=== PATIENT | female | born 1965 | race Caucasian/White ===

== ENCOUNTER 2016-06-23 14:00 | Outpatient (RCR) | payer OTHER ==
[~2016-06-23 14:00] MED LIST: ALEVE 220MG220 MG PO; ASPIR-LOW81 MG PO; ASTELIN NASAL S34 ML NAS; ATARAX50 MG PO; B-121000 MCG PO; BENICAR 20MG TA20 MG PO; BEPREVE; CLARITIN 1010 MG/TAB PO; COENZYME Q-1010 MG PO; DITROPAN XL10 MG PO; GLUCOSAMINE PO; GLUCOSAMINE/CHONDROI PO; IMITREX100 MG PO; LIDOCAINE HCL100 M1 MM; LISINOPRIL10 MG PO; MACRODANTIN100; MAGNESIUM500 MG PO; MASON NATURAL1200 MG PO; MUCINEX 60600 MG/TAB PO; MURO N OP; MURO-128 5% OP3.5 GM OU; MYRBETR50MG PO; NEXIUM PO; NOLVADEX20 MG PO; PREMARIN VAG42.5 GM VG; PROBIOTICA100 MILLIO PO; PULMICORT0.5 MG/21 IH; PYRIDIUM 100MG100 MG PO; SINGULAIR10 MG PO; TEMOVATE0.05% TP; ULTRAM 50MG TAB50 MG PO; VITAMIND3 5000 PO; ZYRTEC 10MG PO
== END 2016-06-30 | disposition still patient (30) ==
LOC: WSPT
DX: I89.0 Lymphedema, not elsewhere classified (principal); C50.911 Malignant neoplasm of unspecified site of right female breast

== ENCOUNTER 2016-08-03 09:08 | Day surgery (SDC) | payer OTHER ==
[~2016-08-03] VITALS: Ht 172.8 cm; Wt 125.0 kg
[2016-08-03] VITALS (8 sets, daily range): BP systolic 104–141; BP diastolic 67–90; PULSE 16–78; TEMP 77–98.1
[2016-08-03 10:04] LABS: HEMATOCRIT 40.1 % (37.0-47.0); HEMOGLOBIN 13.2 g/dl (12.5-16.0); MEAN CELL VOLUME 86 fl (80.0-100.0); MEAN CORPUSCULAR HEMOGLOBIN 28 pg (27.0-31.0); MEAN CORPUSCULAR HGB CONC 33 g/dl (33.0-37.0); PLATELET COUNT 273 K/mm3 (130-400); RED BLOOD COUNT 4.65 M/mm3 (4.10-5.30); REDCELL DISTRIBUTION WIDTH-CV 12.7 % (11.5-14.5); WHITE BLOOD COUNT 6.6 K/mm3 (4.8-10.8)
[2016-08-03 10:11] LABS: INR 1.1 (0.8-3.0); PROTHROMBIN TIME 11.7 SECONDS (9.7-12.8)
[2016-08-03 10:15] LABS: CALCIUM 9.7 mg/dL (8.4-10.2); CREATININE, serum 0.83 mg/dL (0.52-1.25)
[2016-08-03] MEDS ORDERED: TOPROL XL 25MG25 MG PO (10:15)
[2016-08-03] MEDS ORDERED: NOLVADEX 1010 MG/TAB PO (10:17)
[2016-08-03] MEDS ORDERED: NEXIUM 40MG40 MG PO (10:17)
[2016-08-03] MEDS ORDERED: MURO 128 5% OPH15 ML OU (10:22)
[2016-08-03] MEDS ORDERED: SINGULAIR 110 MG/TAB PO (10:23)
[2016-08-03] MEDS ORDERED: NITROSTAT0.4 MG/TAB SL (10:25)
[2016-08-03] MEDS ORDERED: VOLTAREN GEL 1%1 TU TP (10:27)
[2016-08-03] MEDS ORDERED: ZOFRAN8 MG PO (10:28)
[2016-08-03] MEDS ORDERED: NATURAL E400 IU PO (10:44)
[2016-08-03] MEDS ORDERED: GLUCOSAMINE SU500 M2 PO (10:45)
[2016-08-03] MEDS ORDERED: ALPHA LIPOIC A200 M2 PO (10:48)
[2016-08-03] MEDS ORDERED: CHONDROITIN SU400 MG PO (10:48)
== END 2016-08-03 17:15 | disposition home or self-care (01) ==
LOC: EUO 09:08
PROVIDERS: Internal Medicine Cardiovascular Disease
DX: I25.10 Atherosclerotic heart disease of native coronary artery without angina pectoris (principal); R94.39 Abnormal result of other cardiovascular function study; I51.7 Cardiomegaly; R07.9 Chest pain, unspecified; R06.00 Dyspnea, unspecified; Z86.73 Personal history of transient ischemic attack (TIA), and cerebral infarction without residual deficits; I10 Essential (primary) hypertension; Z85.3 Personal history of malignant neoplasm of breast; K21.9 Gastro-esophageal reflux disease without esophagitis; K76.0 Fatty (change of) liver, not elsewhere classified; A63.0 Anogenital (venereal) warts; M17.12 Unilateral primary osteoarthritis, left knee; G62.9 Polyneuropathy, unspecified; F43.10 Post-traumatic stress disorder, unspecified; R00.2 Palpitations; R00.0 Tachycardia, unspecified; R60.0 Localized edema; I83.93 Asymptomatic varicose veins of bilateral lower extremities; Z87.891 Personal history of nicotine dependence; Z79.899 Other long term (current) drug therapy; Z79.82 Long term (current) use of aspirin
CPT/HCPCS: C1894; J1644; J2250; J3010; Q9967

== ENCOUNTER → 2016-09-29 | Outpatient (RCR) | payer OTHER ==
[~2016-09-29] MED LIST changes: +ALPHA LIPOIC A200 M2 PO; +CHONDROITIN SU400 MG PO; +GLUCOSAMINE SU500 M2 PO; +MURO 128 5% OPH15 ML OU; +NATURAL E400 IU PO; +NEXIUM 40MG40 MG PO; +NITROSTAT0.4 MG/TAB SL; +NOLVADEX 1010 MG/TAB PO; +SINGULAIR 110 MG/TAB PO; +TOPROL XL 25MG25 MG PO; +VOLTAREN GEL 1%1 TU TP; +ZOFRAN8 MG PO
== END | disposition home or self-care (01) ==
LOC: WSPT
DX: I89.0 Lymphedema, not elsewhere classified (principal); Z85.3 Personal history of malignant neoplasm of breast

== ENCOUNTER → 2016-12-09 | Outpatient (CLI) | payer OTHER | LOC: COL.PUL 11:16 | DX: G47.33 Obstructive sleep apnea (adult) (pediatric) (principal); R06.02 Shortness of breath; Z87.891 Personal history of nicotine dependence ==

== ENCOUNTER 2016-12-29 14:00 | Outpatient (RCR) | payer OTHER | END 2017-01-04 | disposition still patient (30) | LOC: WSPT | DX: I89.0 Lymphedema, not elsewhere classified (principal); I87.2 Venous insufficiency (chronic) (peripheral) ==

== ENCOUNTER 2016-12-31 13:45 | Outpatient (RCR) | payer OTHER | END 2017-01-11 | disposition home or self-care (01) | LOC: WSPT | DX: I89.0 Lymphedema, not elsewhere classified (principal) ==

== ENCOUNTER 2017-03-02 14:00 | Outpatient (RCR) | payer OTHER | END 2017-04-05 | LOC: WSPT | DX: I89.0 Lymphedema, not elsewhere classified (principal); I87.2 Venous insufficiency (chronic) (peripheral) ==

== ENCOUNTER 2017-04-15 14:45 | Outpatient (RCR) | payer OTHER | END 2017-04-21 12:00 | LOC: WSPT 14:45 | DX: I89.0 Lymphedema, not elsewhere classified (principal) ==

== ENCOUNTER 2017-07-07 13:15 | Outpatient (RCR) | payer OTHER | END 2017-07-14 | disposition home or self-care (01) | LOC: WSPT | DX: I89.0 Lymphedema, not elsewhere classified (principal); I87.2 Venous insufficiency (chronic) (peripheral) ==

== ENCOUNTER 2017-10-14 14:45 | Outpatient (RCR) | payer OTHER | END 2017-10-16 | disposition home or self-care (01) | LOC: WSPT | DX: I89.0 Lymphedema, not elsewhere classified (principal); I87.2 Venous insufficiency (chronic) (peripheral) ==

== ENCOUNTER → 2017-11-03 | Outpatient (CLI) | payer OTHER | LOC: MC.RAD 08:59 | DX: Z12.31 Encounter for screening mammogram for malignant neoplasm of breast (principal); Z85.3 Personal history of malignant neoplasm of breast; Z90.11 Acquired absence of right breast and nipple ==

== ENCOUNTER 2018-01-18 12:45 | Outpatient (RCR) | payer OTHER | END 2018-02-05 | disposition home or self-care (01) | LOC: WSPT | DX: I89.0 Lymphedema, not elsewhere classified (principal); I87.2 Venous insufficiency (chronic) (peripheral) ==

== ENCOUNTER 2018-01-30 12:45 | Outpatient (RCR) | payer OTHER | END 2018-02-14 | disposition still patient (30) | LOC: WSST | DX: J38.3 Other diseases of vocal cords (principal) ==

== ENCOUNTER 2018-05-02 15:45 | Outpatient (RCR) | payer OTHER | END 2018-05-11 | disposition home or self-care (01) | LOC: WSPT | DX: I89.0 Lymphedema, not elsewhere classified (principal) ==

== ENCOUNTER 2018-06-21 15:15 | Outpatient (RCR) | payer OTHER | END 2018-06-27 | LOC: WSST | DX: J38.3 Other diseases of vocal cords (principal) ==

== ENCOUNTER → 2018-07-14 | Outpatient (CLI) | payer OTHER | LOC: COL.RAD 14:00 | DX: K76.0 Fatty (change of) liver, not elsewhere classified (principal) | CPT/HCPCS: Q9967 ==

== ENCOUNTER 2018-09-25 15:00 | Outpatient (RCR) | payer OTHER | END 2018-10-01 | disposition home or self-care (01) | LOC: WSPT | DX: I89.0 Lymphedema, not elsewhere classified (principal); I87.2 Venous insufficiency (chronic) (peripheral) ==

== ENCOUNTER 2018-11-07 12:02 | Outpatient (CLI) | payer OTHER ==
[~2018-11-07] VITALS: Ht 172.8 cm; Wt 127.0 kg
[~2018-11-07 12:02] MED LIST changes: -ASPIR-LOW81 MG PO; +ASPIRIN E.C. 8181 MG PO
[2018-11-07 12:58] VITALS: BP 153/104; PULSE 102; TEMP 97.1
[2018-11-07] MEDS ORDERED: BYSTOLIC2.5 MG PO (13:42)
[2018-11-07] MEDS ORDERED: ALLEGRA 180MG180 MG PO (13:43)
[2018-11-07] MEDS ORDERED: ATARAX50 MG PO (13:43)
[2018-11-07] MEDS ORDERED: CELEBREX 1100 MG/CAP PO (13:44)
[2018-11-07 14:30] VITALS: BP 151/103; PULSE 84
--- NOTE | 2018-11-07 15:10 | NUR ---
Pt discharged per ambulation with .
== END 2018-11-07 16:53 | disposition home or self-care (01) ==
LOC: COL.CAR 12:02
DX: R55 Syncope and collapse (principal); I47.1 Supraventricular tachycardia; I42.9 Cardiomyopathy, unspecified; I10 Essential (primary) hypertension; Z86.73 Personal history of transient ischemic attack (TIA), and cerebral infarction without residual deficits; Z85.3 Personal history of malignant neoplasm of breast; J84.10 Pulmonary fibrosis, unspecified; I87.2 Venous insufficiency (chronic) (peripheral); Z88.8 Allergy status to other drugs, medicaments and biological substances
CPT/HCPCS: 27124; C1764

== ENCOUNTER 2018-12-18 13:00 | Outpatient (RCR) | payer OTHER ==
[~2018-12-18 13:00] MED LIST changes: +ALLEGRA 180MG180 MG PO; +BYSTOLIC2.5 MG PO; +CELEBREX 1100 MG/CAP PO
== END 2019-01-09 ==
LOC: WSPT
DX: I89.0 Lymphedema, not elsewhere classified (principal); I87.2 Venous insufficiency (chronic) (peripheral)

== ENCOUNTER → 2019-01-09 | Outpatient (CLI) | payer OTHER | LOC: MC.RAD 12-05 15:30 | DX: Z12.31 Encounter for screening mammogram for malignant neoplasm of breast (principal); C50.411 Malignant neoplasm of upper-outer quadrant of right female breast; Z90.11 Acquired absence of right breast and nipple ==

== ENCOUNTER 2019-04-04 15:00 | Outpatient (RCR) | payer OTHER | END 2019-04-25 | disposition still patient (30) | LOC: WSPT | DX: I87.2 Venous insufficiency (chronic) (peripheral) (principal); I89.0 Lymphedema, not elsewhere classified ==

== ENCOUNTER 2019-05-15 11:15 | Outpatient (RCR) | payer OTHER | END 2019-06-19 | disposition still patient (30) | LOC: WSPT | DX: M48.04 Spinal stenosis, thoracic region (principal) ==

== ENCOUNTER 2019-07-31 12:45 | Outpatient (RCR) | payer OTHER | END 2019-09-19 | disposition home or self-care (01) | LOC: WSPT | DX: M48.04 Spinal stenosis, thoracic region (principal) ==

== ENCOUNTER 2019-10-31 08:30 | Outpatient (RCR) | payer OTHER | END 2020-01-20 | LOC: WSPT | DX: M54.6 Pain in thoracic spine (principal) ==

== ENCOUNTER 2019-12-05 08:30 | Outpatient (RCR) | payer OTHER | END 2020-01-17 | disposition still patient (30) | LOC: WSPT | DX: I89.0 Lymphedema, not elsewhere classified (principal) ==

== ENCOUNTER → 2020-01-14 | Outpatient (CLI) | payer OTHER | LOC: MC.RAD 10:30 | DX: Z12.31 Encounter for screening mammogram for malignant neoplasm of breast (principal) ==

== ENCOUNTER → 2020-01-30 | Outpatient (CLI) | payer OTHER | LOC: COL.RAD 09:13 | DX: C50.411 Malignant neoplasm of upper-outer quadrant of right female breast (principal); M51.26 Other intervertebral disc displacement, lumbar region | CPT/HCPCS: A9503 ==

== ENCOUNTER 2020-06-18 14:00 | Outpatient (RCR) | payer OTHER | END 2020-06-22 | disposition home or self-care (01) | LOC: WSPT | DX: I89.0 Lymphedema, not elsewhere classified (principal) ==

== ENCOUNTER → 2020-08-28 | Outpatient (CLI) | payer OTHER ==
--- NOTE | 2020-08-28 16:35 | NUR ---
Called Dr. Conley's office with request for Rx for meter and strips so patient can check BG 1x/day Left message with RN, Melvi
== END ==
LOC: DIA.ED
DX: E11.319 Type 2 diabetes mellitus with unspecified diabetic retinopathy without macular edema (principal); E78.5 Hyperlipidemia, unspecified
CPT/HCPCS: G0108

== ENCOUNTER → 2020-09-15 | Outpatient (CLI) | payer OTHER | LOC: DIA.ED 02:46 | DX: E11.9 Type 2 diabetes mellitus without complications (principal); E78.5 Hyperlipidemia, unspecified; I10 Essential (primary) hypertension | CPT/HCPCS: G0108 ==

== ENCOUNTER → 2020-10-20 | Outpatient (CLI) | payer OTHER | LOC: DIA.ED 12:56 | DX: E11.319 Type 2 diabetes mellitus with unspecified diabetic retinopathy without macular edema (principal); I10 Essential (primary) hypertension; E78.5 Hyperlipidemia, unspecified | CPT/HCPCS: G0108 ==

== ENCOUNTER → 2021-01-05 | Outpatient (CLI) | payer OTHER | LOC: DIA.ED 12-01 09:10 | DX: E11.65 Type 2 diabetes mellitus with hyperglycemia (principal); E78.5 Hyperlipidemia, unspecified; I10 Essential (primary) hypertension | CPT/HCPCS: G0108 ==

== ENCOUNTER 2021-02-02 13:00 | Outpatient (RCR) | payer OTHER | END 2021-02-10 | LOC: WSPT | DX: I89.0 Lymphedema, not elsewhere classified (principal); Z85.3 Personal history of malignant neoplasm of breast ==

== ENCOUNTER → 2021-02-04 | Outpatient (CLI) | payer OTHER | LOC: MC.RAD 13:57 | DX: C50.411 Malignant neoplasm of upper-outer quadrant of right female breast (principal); N64.4 Mastodynia ==

== ENCOUNTER → 2021-04-03 | Outpatient (CLI) | payer OTHER | LOC: COL.RAD 10:30 | DX: K76.0 Fatty (change of) liver, not elsewhere classified (principal) ==

== ENCOUNTER → 2021-04-06 | Outpatient (CLI) | payer OTHER | LOC: DIA.ED 03-04 10:32 | DX: E11.65 Type 2 diabetes mellitus with hyperglycemia (principal); E78.5 Hyperlipidemia, unspecified; I10 Essential (primary) hypertension | CPT/HCPCS: G0108 ==

== ENCOUNTER 2021-04-28 11:15 | Outpatient (RCR) | payer OTHER | END 2021-05-17 | disposition home or self-care (01) | LOC: WSPT | DX: I89.0 Lymphedema, not elsewhere classified (principal); Z85.3 Personal history of malignant neoplasm of breast ==

== ENCOUNTER → 2021-06-01 | Outpatient (CLI) | payer OTHER | LOC: DIA.ED 08:18 | DX: E11.65 Type 2 diabetes mellitus with hyperglycemia (principal); E78.5 Hyperlipidemia, unspecified; I10 Essential (primary) hypertension | CPT/HCPCS: G0108 ==

== ENCOUNTER 2021-06-17 11:15 | Outpatient (RCR) | payer OTHER | END 2021-06-19 | LOC: WSPT | DX: I89.0 Lymphedema, not elsewhere classified (principal); Z85.3 Personal history of malignant neoplasm of breast ==

== ENCOUNTER 2021-08-14 10:15 | Outpatient (RCR) | payer OTHER | END 2021-08-17 | disposition home or self-care (01) | LOC: WSPT | DX: I89.0 Lymphedema, not elsewhere classified (principal); Z85.3 Personal history of malignant neoplasm of breast ==

== ENCOUNTER 2021-11-13 10:23 | Outpatient (RCR) | payer OTHER | END 2021-11-17 | disposition home or self-care (01) | LOC: WSPT | DX: I89.0 Lymphedema, not elsewhere classified (principal) ==

== ENCOUNTER 2021-12-16 13:00 | Outpatient (RCR) | payer OTHER | END 2021-12-17 | disposition home or self-care (01) | LOC: WSPT | DX: I89.0 Lymphedema, not elsewhere classified (principal) ==

== ENCOUNTER 2022-01-13 14:15 | Outpatient (RCR) | payer OTHER | END 2022-01-17 | disposition home or self-care (01) | LOC: WSPT | DX: I89.0 Lymphedema, not elsewhere classified (principal) ==

== ENCOUNTER 2022-01-27 14:15 | Outpatient (RCR) | payer OTHER | END 2022-02-17 | disposition home or self-care (01) | LOC: WSPT | DX: I89.0 Lymphedema, not elsewhere classified (principal) ==

== ENCOUNTER → 2022-02-05 | Outpatient (CLI) | payer OTHER | LOC: MC.RAD 10:15 | DX: Z12.31 Encounter for screening mammogram for malignant neoplasm of breast (principal); Z85.3 Personal history of malignant neoplasm of breast ==

== ENCOUNTER 2022-04-02 10:00 | Outpatient (RCR) | payer OTHER ==
[~2022-04-02 10:00] MED LIST changes: +ALOE VERA CONCE1 CAP PO; +B-12 500 MCG PO; +BERBERINE PO; +GARLIC100 MG PO; +IRON BISGLYCINA28 MG PO; +LYSINE1000 MG PO; +MAGNESIUM GLYC100 MG PO; +NULEV0.125 M1 PO; +OMEGA-31 SGL PO; +ROBAXIN 50500 MG/TAB PO; +TURMERIC500 MG PO; +URIBEL1 CAP PO; +VITAMIN B-6100 MG PO; +XIIDRA1 EACH OP; +ZADITOR 5 ML5 ML OP; +ZEBETA 5MG5 MG PO
== END 2022-04-19 | disposition home or self-care (01) ==
LOC: WSPT
DX: I89.0 Lymphedema, not elsewhere classified (principal); Z85.3 Personal history of malignant neoplasm of breast

== ENCOUNTER → 2022-08-17 | Outpatient (RCR) | payer OTHER ==
[~2022-08-17] MED LIST changes: +CEPHALEXIN500 M1 PO; +IMITREX50 MG PO
== END | disposition home or self-care (01) ==
LOC: WSPT
DX: I89.0 Lymphedema, not elsewhere classified (principal)

== ENCOUNTER 2022-08-19 11:13 | Day surgery (SDC) | payer OTHER ==
[~2022-08-19] VITALS: Ht 172.7 cm; Wt 127.1 kg
[~2022-08-19 11:13] MED LIST changes: -CEPHALEXIN500 M1 PO; -IMITREX50 MG PO
[2022-08-19] MEDS ORDERED: IMITREX50 MG PO (12:10)
[2022-08-19 12:19] VITALS: BP 123/79; PULSE 73; TEMP 97.8
[2022-08-19 13:01] VITALS: BP 133/76; PULSE 75
--- NOTE | 2022-08-19 13:16 | NUR ---
See merge for all medication, assessment, intervention, and vital sign times.
[2022-08-19 14:00] VITALS: BP 114/75; PULSE 79; TEMP 97.7
[2022-08-19] MEDS ORDERED: CEPHALEXIN500 M1 PO (14:05)
[2022-08-19 14:15] VITALS: BP 122/72; PULSE 77
[2022-08-19 14:30] VITALS: BP 115/80; PULSE 80
--- NOTE | 2022-08-19 15:03 | NUR ---
PT WAS DISCHARGED AT 1450, PT WAS ABLE TO AMBULATE FROM WHEELCHAIR TO CAR WITHOUT ISSUE OR COMPLAINT. PT WAS GIVEN DISCHARGE TEACHING/INSTRUCTION PRIOR TO LEAVING AND VERBALIZED UNDERSTANDING OF TEACHING. PT CONSUMED SIPS OF WATER AND ATE PEANUT BUTTER PRIOR TO DISCHARGE AND WAS ABLE TO TOLERATE BOTH WITHOUT COMPLAINT. PT'S CHEST DRESSING WAS DRY AND INTACT AND IV WAS DISCONTINUED UPON DISCHARGE. PT SUCCESSFULY VOIDED AND AMULATED TO THE BATHROOM. VITAL SIGNS REMAINED WITHIN NORMAL LIMITS POST-OPERATIVELY.
== END 2022-08-19 14:50 | disposition home or self-care (01) ==
LOC: COL.CAR 11:13
DX: Z45.09 Encounter for adjustment and management of other cardiac device (principal); I47.1 Supraventricular tachycardia
CPT/HCPCS: C1764; J0690; J2060; J2250; J3010; J7040

== ENCOUNTER 2022-09-06 15:45 | Outpatient (RCR) | payer OTHER ==
[~2022-09-06 15:45] MED LIST changes: +CEPHALEXIN500 M1 PO; +IMITREX50 MG PO
== END 2022-09-17 | disposition home or self-care (01) ==
LOC: WSPT
DX: I89.0 Lymphedema, not elsewhere classified (principal)

== ENCOUNTER → 2022-09-16 | Outpatient (CLI) | payer OTHER | LOC: MC.RAD 10:46 | DX: C50.411 Malignant neoplasm of upper-outer quadrant of right female breast (principal); N64.9 Disorder of breast, unspecified ==

== ENCOUNTER → 2022-09-16 | Outpatient (CLI) | payer OTHER | LOC: COL.RAD 13:15 | DX: T19.9XXD Foreign body in genitourinary tract, part unspecified, subsequent encounter (principal) ==

== ENCOUNTER → 2022-09-17 | Outpatient (CLI) | payer OTHER | LOC: MC.RAD 12:30 | DX: C50.411 Malignant neoplasm of upper-outer quadrant of right female breast (principal) | CPT/HCPCS: 30634; 30636 ==

== ENCOUNTER 2022-09-29 15:00 | Outpatient (RCR) | payer OTHER | END 2022-10-17 | disposition home or self-care (01) | LOC: WSPT | DX: I89.0 Lymphedema, not elsewhere classified (principal) ==

== ENCOUNTER 2023-02-11 14:00 | Outpatient (RCR) | payer OTHER ==
[~2023-02-11 14:00] MED LIST changes: +ALPHA LIPOIC A600 M1 PO; +ASTELIN NASAL S34 ML NS; +MURO-128 5% OP3.5 GM OP; +OMEGA-3 FISH1000 MG PO
== END 2023-02-17 | disposition home or self-care (01) ==
LOC: WSPT
DX: I89.0 Lymphedema, not elsewhere classified (principal)

== ENCOUNTER → 2023-02-24 | Outpatient (CLI) | payer OTHER | LOC: COL.RAD 12:53 | DX: R06.02 Shortness of breath (principal) ==

== ENCOUNTER 2023-03-11 11:15 | Outpatient (RCR) | payer OTHER | END 2023-03-19 | disposition home or self-care (01) | LOC: WSPT | DX: I89.0 Lymphedema, not elsewhere classified (principal); Z85.3 Personal history of malignant neoplasm of breast ==

== ENCOUNTER 2023-06-09 13:00 | Outpatient (RCR) | payer OTHER | END 2023-06-19 | disposition home or self-care (01) | LOC: WSPT | DX: I89.0 Lymphedema, not elsewhere classified (principal) ==

== ENCOUNTER 2023-07-07 13:00 | Outpatient (RCR) | payer OTHER | END 2023-07-20 | disposition home or self-care (01) | LOC: WSPT | DX: I89.0 Lymphedema, not elsewhere classified (principal) ==

== ENCOUNTER → 2024-03-20 | Outpatient (CLI) | payer OTHER | LOC: MC.RAD 13:00 | DX: Z12.31 Encounter for screening mammogram for malignant neoplasm of breast (principal); Z80.3 Family history of malignant neoplasm of breast; Z98.890 Other specified postprocedural states; Z92.3 Personal history of irradiation ==

== ENCOUNTER 2024-05-10 14:00 | Outpatient (RCR) | payer OTHER | END 2024-05-19 | disposition home or self-care (01) | LOC: WSPT | DX: I89.0 Lymphedema, not elsewhere classified (principal); Z85.3 Personal history of malignant neoplasm of breast ==